=== PATIENT | female | born 1950 | race Caucasian/White ===

== ENCOUNTER → 2024-01-25 06:26 | Day surgery (SDC) | payer MEDICARE, SELFPAY ==
[2024-01-25 07:24] LABS: Glucose - Point of Care 91 mg/dl (70-99)
== END ==
LOC: GI 06:26
PROVIDERS: ATTENDING PHYSICIAN Internal Medicine Gastroenterology
DX: K64.8 Other hemorrhoids (principal); K57.30 Diverticulosis of large intestine without perforation or abscess without bleeding; R19.4 Change in bowel habit; D12.4 Benign neoplasm of descending colon; Z86.010 Personal history of colon polyps
CPT/HCPCS: 45385; 45380; 88305; 82962

== ENCOUNTER → 2024-06-06 12:18 | Outpatient (REF) | payer MEDICARE, SELFPAY | LOC: HWWDC 12:18 | PROVIDERS: ATTENDING PHYSICIAN Obstetrics & Gynecology; FAMILY PHYSICIAN Internal Medicine | DX: Z12.31 Encounter for screening mammogram for malignant neoplasm of breast (principal) | CPT/HCPCS: 77063; 77067 ==

== ENCOUNTER → 2024-07-17 11:50 | Outpatient (REF) | payer MEDICARE, SELFPAY | LOC: RAD 11:50 | PROVIDERS: ATTENDING PHYSICIAN Nurse Practitioner; FAMILY PHYSICIAN Internal Medicine | DX: K59.09 Other constipation (principal) | CPT/HCPCS: 74018 ==

== ENCOUNTER 2025-04-25 09:13 | Inpatient (IN) | payer MEDICARE, SELFPAY ==
[2025-04-22 20:20] VITALS: BP 156/97
[2025-04-22 20:25] VITALS: BP 156/97
[2025-04-22 20:31] VITALS: BMI 30.6
[2025-04-22 20:49] LABS: % Basophils 0.4 % (0-2); % Eosinophils 1.9 % (0-6); % Immature Granulocytes 0.3 % (0-0.5); % Lymphocytes 31.9 % (20.5-51.1); % Monocytes 10.1 % (1.7-9.3); % Neutrophils 55.4 % (42.2-75.2); Absolute Eosinophils 0.1 10^3/uL (0-0.7); Absolute Lymphocytes 2.4 10^3/uL (1.2-3.4); Absolute Monocytes 0.8 10^3/uL (0.1-0.6); Absolute Neutrophils 4.2 10^3/uL (1.4-6.5); Hematocrit 36.5 % (37.0-47.0); Hemoglobin 12.1 g/dL (12.0-16.0); Mean Corp Hgb Conc. 33.2 g/dL (33.0-37.0); Mean Corpuscular Hgb 25.1 pg (27.0-31.0); Mean Corpuscular Volume 75.7 fL (81.0-99.0); Mean Platelet Volume 10.6 fL (7.4-10.4); Nucleated Red Blood Cells % 0 %; Platelet Count 303 10^3/uL (130-400); Red Blood Cell Count 4.82 10^6/uL (4.20-5.40); Red Cell Dist. Width 15.8 % (11.5-14.5); White Blood Cell Count 7.5 10^3/uL (4.8-10.8)
[2025-04-22 21:00] VITALS: BP 142/86
[2025-04-22 21:15] LABS: ALT (SGPT) 22 U/L (0-35); AST (SGOT) 29 U/L (14-36); Albumin 4.4 g/dl (3.5-5.0); Alkaline Phosphatase 110 U/L (38-126); Blood Urea Nitrogen 15 mg/dl (7-17); Calcium 9.3 mg/dl (8.4-10.2); Carbon Dioxide 21 mmol/L (22-30); Chloride 104 mmol/L (98-107); Estimated Creatinine Clearance 78 ml/min; Glucose 92 mg/dl (70-99); Potassium 4.4 mmol/L (3.5-5.1); Sodium 135 mmol/L (135-145); Total Bilirubin 0.8 mg/dl (0.2-1.3); Total Protein 6.6 g/dl (6.3-8.2); eGFR > 60.00
[2025-04-22 22:00] VITALS: BP 138/85
[2025-04-22 23:00] VITALS: BP 137/88
[2025-04-23] VITALS (10 sets, daily range): BP systolic 118–147; BP diastolic 60–92; BMI 30.6; BMI 29.2
[2025-04-23 00:07] LABS: NT-proBNP 4440 pg/ml; Troponin I < 0.012 ng/ml
--- NOTE | 2025-04-23 00:13 | ED.GENMED ---
History of Present Illness
General
Chief Complaint: Weakness
Source: patient and family
Exam Limitations: none
Time Seen by Provider: 04/22/25 23:32
Nursing documentation reviewed up to this point in time: agreed with
History of Present Illness
History of Present Illness:
75-year-old female presents to the emergency weakness and shortness of breath. She has a diagnosis of HOCM and is followed by [facility] cardiology. Patient had a dual-chamber pacemaker placed last week. This was done at [facility]. This morning patient was
notified that she was in paroxysmal atrial fibrillation. She was started on digoxin and restarted on Eliquis. Daughter states that she has been acting lethargic for the last week. Today she developed chest pain. Patient has been also followed
for a pericardial effusion. Cardiology told them that she will need a new echocardiogram.
Past History
Past History
ED Past Medical History: GERD, HTN, Hypercholesterolemia, Seizures, Other (Asthmatic bronchitis, Diverticulitis, Renal calculus, Pre diabetic on Metformin due to Neuropathy, pelvic floor dysfunction) and Other (Multinodular goiter, bladder prolapse)
ED Past Surgical History: Gynecological (Total hysterectomy, Pelvic floor reconstruction), Orthopedic (Right and left total knee replacements) and Other (Parathyroidectomy, Cataracts)
Social History
Tobacco: Non-smoker
Alcohol: Occasional
Personal: (but lives with X-)
Living: with family
Family History
Family History: Other (Reviewed and noncontributory)
Review of Systems
Review of Systems
All Other Systems: ROS reviewed and negative except as documented in HPI and ROS
Constitutional: Reports fatigue and sleep disturbance
Respiratory: Reports trouble breathing
Cardiac: Reports chest pain and palpitations
Psychiatric: Reports depression and anxiety
Phy Exam
General Physical Exam
General Presentation: well appearing and mild distress
General age: appears older than age
General Skin: warm and dry
General Habitus: normal and debilitated
General Mental: alert
General Hydration: appears well hydrated
ENT Exam
ENT Exam: EOMI, pharynx normal, neck supple and normocephalic
Eye Exam
Eye Exam: PERRL, cornea clear and conjunctiva normal
Cardiovascular Exam
Cardiovascular Exam: no edema, no murmur, normal peripheral pulses and irregularly irregular
Pulmonary Exam
Pulmonary Exam: lungs clear, no respiratory distress, no rales, no crackles, no rhonchi, no stridor, no wheezing and no cough
Gastrointestinal Exam
Gastrointestinal Exam: normal bowel sounds, non tender, soft, no organomegaly, no pulsatile mass and non distended
Neurological Exam
Neurological Exam: alert, oriented x3, no motor deficits and speech normal
Musculoskeletal Exam
Musculoskeletal Exam: full ROM and no edema
Skin Exam
Skin Exam: normal color, warm/dry, no rash and no petechia
Psychiatric Exam
Psychiatric Exam: normal mood/affect
Course
Orders/Labs/Results
Orders:
Orders
04/22/25 20:25
Electrocardiogram (*1) Urgent
Reason for Study: Chest Pain
EKG- Treatment ONCE
04/22/25 20:36
Complete Blood Count/With Diff Urgent
Comprehensive Metabolic Panel Urgent
04/22/25 23:33
Pro-BNP [NT-proBNP] Urgent
Troponin I Urgent
04/23/25 00:17
CR Chest - 2 Views Urgent
Comment:
Reason For Exam: dyspnea
Abnormal Lab Results
04/22/25
20:36
Hct 36.5 L %
(37.0-47.0)
MCV 75.7 L fL
(81.0-99.0)
MCH 25.1 L pg
(27.0-31.0)
RDW 15.8 H %
(11.5-14.5)
MPV 10.6 H fL
(7.4-10.4)
Absolute Monos (auto) 0.8 H 10^3/uL
(0.1-0.6)
Monocytes % 10.1 H %
(1.7-9.3)
Carbon Dioxide 21 L mmol/L
(22-30)
04/22/25 20:36
04/22/25 20:36
Vital Signs
Initial and Last Documented VS:
Initial Vital Signs
Temp Pulse Resp BP Pulse Ox
98.0 F 97 15 156/97 99
04/22/25 20:20 04/22/25 20:20 04/22/25 20:20 04/22/25 20:20 04/22/25 20:20
Last Documented Vital Signs
Temp Pulse Resp BP Pulse Ox
98.0 F 75 24 137/88 98
04/22/25 20:20 04/22/25 23:15 04/22/25 23:15 04/22/25 23:00 04/22/25 23:15
*EKG
Heart Rate: 93
Rhythm: a-fib
Interval: normal interval
QRS Pattern: normal QRS
Ischemia: no ischemia
*Tool Lapper Hand Interpretation
Rate: normal
Interpretation: abnormal
Heart Rate: 88
Rhythm: a-fib
*Critical Care Note
Total Time (30-74mins, 75-104mins- exclusive of procedures): Not Applicable
ED Attending Note
-
Portions of this chart may have been created with voice recognition software.� Occasional wrong word or��sound alike� substitutions may have occurred due to the inherent limitations of voice recognition software.
Discharge Plan
Departure
Patient Disposition: Admit
Date of Disposition: 04/23/25
Time of Disposition: 00:29
Admit to: Telemetry
Presentation/result/management discussed w/ accepting MD/DO: Hospitalist
Condition: Good
Discharge Problem:
HOCM (hypertrophic obstructive cardiomyopathy), Weakness, Chest pain, A-fib
Prescriptions:
No Action
metformin 500 MG tablet
500 mg PO DAILY
cyanocobalamin (vitamin B-12) [Vitamin B-12] 1,000 mcg Tablet
1,000 mcg PO MOWEFR Qty: 0
duloxetine 60 MG capsule,delayed release(DR/EC)
60 mg PO QPM
pregabalin [Lyrica] 150 mg Capsule
150 mg PO BID Qty: 0
cholecalciferol (vitamin D3) [Vitamin D3] 50 mcg (2,000 unit) Capsule
50 mcg PO DAILY Qty: 0
rosuvastatin [Crestor] 5 mg Tablet
5 mg PO MOWEFR
amiodarone 200 mg Tablet
200 mg PO DAILY
metoprolol succinate 100 mg Tablet Extended Release 24 Hr
100 mg PO DAILY
tamsulosin [Flomax] 0.4 mg Capsule
0.4 mg PO DAILY
methimazole 5 mg Tablet
5 mg PO DAILY
esomeprazole magnesium [Nexium] 20 mg Capsule,Delayed Release(Dr/Ec)
20 mg PO BID
Eliquis 5 mg Tablet
5 mg PO BID
levetiracetam 500 mg Tablet
1,000 mg PO BID Qty: 120 0RF
cephalexin 500 mg capsule
500 mg PO Q6H 7 Days Qty: 28 0RF
Referrals:
Komal Arias DO [Family Provider, Internal Medicine]
Interventions
Interventions:
*Risk Screen - Suicide Last Done: 04/22/25 20:20
*General Assessment Last Done: 04/22/25 20:20
*Neglect/Abuse Screening Last Done: 04/22/25 20:20
*ED- Fall Risk Assessment Last Done: 04/22/25 20:20
*ED COVID-19 Vaccine History Last Done: 04/22/25 20:20
ED- Cardiac Assessment Last Done: 04/22/25 20:31
ED- Neurological Assessment Last Done: 04/22/25 20:31
ED- Pulmonary Assessment Last Done: 04/22/25 20:31
Discharge Date and Time
Print Language: URDU
--- NOTE | 2025-04-23 03:16 | HPS.HSE ---
Family Physician
-
Family Physician: Komal rAias
Chief Complaint
-
Weakness / Fatigue
History of Present Illness
Patient is a 75y F with PMH significant for paroxysmal A-Fib, ASCVD and HOCM who presents to ED complaining of weakness and fatigue. Patient notes that she underwent placement of BiV AICD on 04/16 at [facility]. She states that she was feeling
fairly well prior to that; however, since the surgery she has felt progressively more weak and fatigued. She complains of general malaise, poor appetite, dyspnea with activity and occasional chest heaviness. She was contacted this AM and advised
that her AICD showed she had been in A-Fib since 04/17 - 100% of the time. Patient notes that she typically does not tolerate being in A-Fib very well.
Patient was instructed to begin Digoxin (she has taken one dose thus far) and to resume her Eliquis (originally scheduled to be held until mid-April). She took first doses of these meds; however, she continued to feel poorly and presented to the ED
for further evaluation.
She denies any cough, fevers / chills, N/V/D, etc.
Medical History
Past Medical History
Past Medical History: Reports Other
Additional Past Medical History:
Paroxysmal Atrial Fibrillation
HOCM
Pericardial Effusion
Hypertension
Seizure Disorder (last seizure 2022)
DM-II
Past Surgical History: Reports Other
Additional Past Surgical History:
AICD Placement 04/16/25
Pelvic Reconstruction / Hysterectomy
Bilateral TKA
RLE ORIF
Right Shoulder ORIF
Parathyroidectomy
Cataracts
Social History
Tobacco: Non-smoker
Alcohol: None
Drug: None
Family History
Family History: Other (Father: CVA Mother: CAD)
Allergies / Home Medications
Allergies reflects when Allergies were last updated in [facility].
Home Medications with original date entered in [facility]
Allergy/Medication List:
Allergies
Allergy/AdvReac Type Severity Reaction Status Date / Time
No Known Allergies Allergy Verified 04/22/25 20:20
Home Medications
duloxetine 60 mg capsule,delayed release 60 mg PO QPM Mental Health/Anxiety 07/21/20
metformin 500 mg tablet 500 mg PO DAILY Diabetes 07/21/20
rosuvastatin 5 mg tablet (Crestor) 5 mg PO MOWEFR High cholesterol 10/19/22
apixaban 5 mg tablet (Eliquis) 5 mg PO BID Blood clot prevention/tx 01/21/23
atenolol 50 mg tablet 50 mg PO BID 04/23/25
colchicine 0.6 mg tablet 0.6 mg PO BID 04/23/25
fexofenadine 60 mg tablet 60 mg PO DAILY PRN allergies 04/23/25
fluticasone propionate 50 mcg/actuation nasal spray,suspension (Flonase Allergy Relief) 2 spray intranasal DAILY 04/23/25
levetiracetam 500 mg tablet 750 mg PO QPM 04/23/25
mavacamten 2.5 mg capsule (Camzyos) 2.5 mg PO DAILY 04/23/25
pantoprazole 40 mg tablet,delayed release 40 mg PO DAILY 04/23/25
Review of Systems
-
History Source: Patient
A 12 point ROS was completed and negative except as noted: Yes
Constitutional: Reports Fatigue; Denies Fever or Chills
EENT: Denies Sore Throat
Respiratory: Reports Trouble Breathing; Denies Cough
Cardiac: Reports Chest Pain; Denies Diaphoresis, Palpitations or Syncope
Abdomen/GI: Denies Abdominal Pain, Nausea, Vomiting or Diarrhea
: Denies Dysuria or Frequency
Musculoskeletal: Denies Joint Pain or Edema
Neurological: Reports Weakness; Denies Dizzy or Headache
Psych: Denies Depression or Anxiety
Physical Exam
Vital Signs
Vital Signs
Temp Pulse Resp BP Pulse Ox
98.0 F 88 10 132/86 96
04/22/25 20:20 04/23/25 03:15 04/23/25 03:15 04/23/25 03:12 04/23/25 03:15
Physical Exam
General: Other (75y F in no acute distress.)
HEENT: Moist mucous membranes and PERRLA
Respiratory: Clear; No Wheezes, Rales or Rhonchi
Cardiac: S1/S2, Irregular Rhythm and Other (L ACW incision site intact without bleeding / discharge / erythema / etc.); No Murmur
GI: Soft, Non Tender, Non Distended and Normal Bowel Sounds
Musculoskeletal: No Clubbing, No Cyanosis and No Edema
Neuro: AO x 3
Laboratory Results
-
04/22/25 20:36
04/22/25 20:36
Laboratory Results
Total Bilirubin 0.8 mg/dl (0.2-1.3) 04/22/25 20:36
AST 29 U/L (14-36) 04/22/25 20:36
ALT 22 U/L (0-35) 04/22/25 20:36
Alkaline Phosphatase 110 U/L (38-126) 04/22/25 20:36
Troponin I < 0.012 ng/ml 04/22/25 23:33
Impression/Plan
-
A/P: Patient is a 75y F with PMH significant for PA-Fib, HOCM and recent AICD placement who presents to ED complaining of weakness, dyspnea and intermittent chest discomfort.
Chest Pain
Fatigue
Paroxysmal Atrial Fibrillation
HOCM
- Observe overnight for further evaluation and treatment.
- Symptoms likely secondary to A-Fib and patient reports prior history of very poor tolerance of arrhythmia.
- Device interrogation notes 100% A-Fib since 04/21.
- Continue atenolol. Continue newly added digoxin for now.
- Continue Eliquis for stroke risk reduction (first dose was earlier today).
- Cardiology evaluation for additional recommendations.
- Update Echo.
Pericardial Effusion
- Check Echo as noted above
- Continue colchicine for now - patient reports about 3-4 days remaining of this course.
Benign Hypertension
- Stable. Continue usual med regimen with holding parameters.
DM-II
- Stable. Hold metformin. Follow glucose and cover with SSI as needed.
Seizure Disorder
- Stable. Last seizure activity in 2022.
- Continue Keppra.
Anxiety / Depression
- Stable. Continue outpatient medication.
DVT Prophylaxis: On Eliquis
Code Status: Full
--- NOTE | 2025-04-23 05:00 | PTCARENOTE ---
Received patient from ED at approx 0445. Patient attempted to ambulate from bed to stretcher without assistive device (her baseline); however, she displayed an unsteady gait and was provided with a walker the rest of the way. AAA x3. Oriented to
room. Call cox in reach.
[2025-04-23 07:15] LABS: Glucose - Point of Care 98 mg/dl (70-99)
[2025-04-23 08:00] LABS: Hematocrit 34.8 % (37.0-47.0); Hemoglobin 11.4 g/dL (12.0-16.0); Mean Corp Hgb Conc. 32.8 g/dL (33.0-37.0); Mean Corpuscular Hgb 24.9 pg (27.0-31.0); Mean Platelet Volume 10.8 fL (7.4-10.4); Platelet Count 302 10^3/uL (130-400); Red Blood Cell Count 4.58 10^6/uL (4.20-5.40); Red Cell Dist. Width 15.9 % (11.5-14.5); White Blood Cell Count 6.2 10^3/uL (4.8-10.8)
[2025-04-23 08:14] LABS: Troponin I < 0.012 ng/ml
[2025-04-23] MEDS: NON-FORMULARY ITEM 2.5 MG PO (08:17)
[2025-04-23] MEDS: COLCHICINE 0.6 MG PO ×2 (08:19→21:17)
[2025-04-23] MEDS: TENORMIN 50 MG PO ×2 (08:19→21:17)
[2025-04-23] MEDS: PROTONIX 40 MG PO (08:19)
[2025-04-23] MEDS: ELIQUIS 5 MG PO ×2 (08:19→21:17)
[2025-04-23] MEDS: CRESTOR 5 MG PO (08:20)
[2025-04-23 08:45] LABS: Glycohemoglobin (HgbA1c) 5.6 % (4.0-5.6)
[2025-04-23 08:51] LABS: Blood Urea Nitrogen 11 mg/dl (7-17); Calcium 8.7 mg/dl (8.4-10.2); Carbon Dioxide 21 mmol/L (22-30); Chloride 102 mmol/L (98-107); Estimated Creatinine Clearance 89 ml/min; Glucose 98 mg/dl (70-99); Magnesium 1.7 mg/dl (1.6-2.3); Potassium 4.2 mmol/L (3.5-5.1); Sodium 131 mmol/L (135-145); eGFR > 60.00
[2025-04-23 08:56] LABS: TSH Reflex To Free T4 0.62 uIU/ml (0.47-4.68)
[2025-04-23 11:50] LABS: Glucose - Point of Care 115 mg/dl (70-99)
--- NOTE | 2025-04-23 12:55 | CON.CAR ---
Addendum entered and electronically signed by Markie Soliz MD 04/23/25 15:31:
I saw and examined the patient.
The Manager Channel's note was reviewed and I agree with the note.
Comment: Briefly, 75-year-old woman past medical history of hypertrophic cardiomyopathy, paroxysmal atrial fibrillation and recent ICD implant on 04/16/2025
Patient was contacted by her primary lepidopterist due to persistent A-fib seen on remote transmission from her newly implanted defibrillator
Outpatient Eliquis was resumed after being held postprocedure and patient was started on digoxin for additional rate control
There was concern for pericardial effusion following ICD implant therefore we will arrange for transthoracic echocardiogram to re-evaluate
If no significant effusion is seen by transthoracic echo we can arrange for JANET/direct-current cardioversion to restore sinus rhythm as she is symptomatic in A-fib despite rate control - tells me that she has felt extremely fatigued over this past
week
Would tentatively start antiarrhythmic drug following cardioversion to maintain sinus rhythm as a bridge to potential ablation with her primary lepidopterist
Rest per Keya Gao
Original Note:
Consultation
Consultation Request
Date/Time Consultation Performed: 04/23/25
Requesting Provider: Dr. Rae Caicedo
Performing Provider: Keya Gao PA-C for Dr. Soliz
Reason for Consultation: afib, chest discomfort
Medical History
-
Chief Complaint: afib, chest discomfort
History of Present Illness:
Patient is a 75 yo F with PMH of HOCM on camzyos, paroxysmal atrial fibrillation on eliquis, who underwent ICD implant 04/16/25 at [facility] by Dr. Stefano Alas. She reports post op was told she had some degree of pericardial effusion however
nothing that required intervention. She has not yet had follow up for wound check. She reports she was then called yesterday by her lepidopterist and told that she has been in persistent afib since 04/17 and was started on digoxin and her eliquis was
restarted (had been held post procedure, plan was until mid April). She states she can normally tell when she is in afib however was unable to tell this time. She states she normally does not tolerate being in afib well. She reports fatigue and
diffuse L sided chest heaviness. Cardiology consulted for evaluation.
PMH:
HOCM on camzyos
s/p Medtronic ICD placement 04/16/25 at [facility]
Pericardial effusion
PAF, eliquis restarted 04/22/25 post ICD
HTN
HLD
Diabetes
Peripheraly neuropathy
History of seizures
Multinodular goiter
History of B/L TKA
Past Medical History
Past Medical History: Other (in HPI)
Social History
Tobacco: Non-Smoker
Alcohol: None
Drug: None
Personal:
Employment: Retired
Family History
Family History: CAD and Other (CVA)
Allergies / Home Medications
Allergy/AdvReac Type Severity Reaction Status Date / Time
No Known Allergies Allergy Verified 04/22/25 20:20
�Medication �Instructions �Recorded �Confirmed �Type
duloxetine 60 mg capsule,delayed 60 mg PO QPM Mental Health/Anxiety 07/21/20 04/23/25 History
release
metformin 500 mg tablet 500 mg PO DAILY Diabetes 07/21/20 04/23/25 History
rosuvastatin 5 mg tablet (Crestor) 5 mg PO MOWEFR High cholesterol 10/19/22 04/23/25 History
apixaban 5 mg tablet (Eliquis) 5 mg PO BID Blood clot 01/21/23 04/23/25 History
prevention/tx
Lyrica 200 mg BID 04/23/25 04/23/25 History
atenolol 50 mg tablet 50 mg PO BID 04/23/25 04/23/25 History
colchicine 0.6 mg tablet 0.6 mg PO BID 04/23/25 04/23/25 History
fexofenadine 60 mg tablet 60 mg PO DAILY PRN allergies 04/23/25 04/23/25 History
fluticasone propionate 50 2 spray intranasal DAILY 04/23/25 04/23/25 History
mcg/actuation nasal
spray,suspension (Flonase Allergy
Relief)
levetiracetam 500 mg tablet 750 mg PO QPM 04/23/25 04/23/25 History
mavacamten 2.5 mg capsule (Camzyos) 2.5 mg PO DAILY 04/23/25 04/23/25 History
pantoprazole 40 mg tablet,delayed 40 mg PO DAILY 04/23/25 04/23/25 History
release
Review of Systems
-
History Source: Patient
All other systems: Negative unless noted
Physical Exam
Vital Signs
Temp Pulse Resp BP Pulse Ox
98.0 F 84 18 128/82 96
04/23/25 11:45 04/23/25 11:45 04/23/25 11:45 04/23/25 11:45 04/23/25 11:45
Lab Results
04/23/25 07:31
04/23/25 07:31
Troponin I Cancelled 04/23/25 16:44
Ffp-H-Mqxownydvzl Pept 4440 pg/ml 04/22/25 23:33
Physical Exam
General: No Apparent Distress and Other (reports chest heaviness)
HEENT: Normocephalic, Anicteric and Moist Mucous Membranes
Respiratory: Clear and Non Labored Respirations
Cardiac: S1/S2 and Irregular Rhythm
GI: Soft, Non Tender, Non Distended and Normal Bowel Sounds
Musculoskeletal: No Clubbing, No Cyanosis and No Edema
Skin: Warm and Dry
Neuro: AO x 3
Psych: Other (flat affect)
Impression / Plan
-
Primary Greaser And Oiler: Dr. Isabel Narayanan of [facility]
Primary EP: Dr. Stefano Alas, [place]
Primary CHF/HOCM: Delfin Lopez
Assessment:
Presentation with fatigue, chest heaviness
Negative troponin x2
HOCM on camzyos
s/p Medtronic ICD placement 04/16/25 at [facility]
Pericardial effusion noted post op
PAF, eliquis restarted 04/22/25 post ICD
HTN
HLD
Diabetes
Peripheral neuropathy
History of seizures
Multinodular goiter
History of B/L TKA
ECHO 04/23/25: pending
Plan:
- Patient presents with complaints of fatigue and chest heaviness in the setting of recent Medtronic ICD placement 04/16/2025 at [facility]
- she was called by primary lepidopterist yesterday as was noted to be in persistent A-fib since 04/17. She has history of paroxysmal atrial fibrillation, but has never been on antiarrhythmic drug therapy or had ablation before. She reports her
lepidopterist wanted to implant ICD first before deciding on further A-fib treatments.
- She was reportedly noted to have pericardial effusion postoperatively and her Eliquis was planned to be on hold until mid April, however as she went into A-fib, Eliquis was resumed 04/22/2025 and she was started on digoxin
- She remains in rate controlled atrial fibrillation on review of telemetry with occasional V pacing
- Device interrogated today and device well-functioning without noted abnormalities
- L chest ICD site appears c/d/i, without surrounding erythema, edema. no drainage
- Check echo to reevaluate pericardial effusion
- Appears she is already being treated for pericarditis with colchicine 0.6 mg twice daily
- She complains of chest heaviness. Troponins negative x 2. May be related to postoperative status. Continue pain management with Tylenol
- proBNP was also elevated at 4440. Chest x-ray however was without pleural effusions or evidence for acute pulmonary edema. Could consider dose of IV Lasix x 1 as blood pressure stable
- Have attempted to reach out to Dr. Stefano Alas [place] EP, to discuss patient's case particularly regarding initiation of antiarrhythmic drug therapy and obtain records. Could also consider for JANET/cardioversion prior to discharge. Hemoglobin 11.4
Data Reviewed
-
EKG: Tracing Personally Visualized and interpreted
Radiology: Report Reviewed by me
Labs: Labs Reviewed by me
Old Records: Reviewed
[2025-04-23] MEDS: LANOXIN 125 MCG PO (13:00)
[2025-04-23] MEDS: LANOXIN PO (13:15)
[2025-04-23] MEDS: TYLENOL 650 MG PO (13:26)
--- NOTE | 2025-04-23 13:54 | W.CARD.DEVCH ---
Cardiac Device Check
-
Device: Implanted Cardioverter-Defibrillator
Rotary Rig Engine Operator: Medtronic
The patient's device was interrogated with assistance of the device financial foundations representative. The device had normal function. Noted to be in persistent atrial fibrillation. 11% vpaced.
--- NOTE | 2025-04-23 15:39 | CM ---
CM reviewed chart, patient seen bedside, initial assessment completed. Patient resides with her ex- in a one story home with upstairs loft, patient remains on first level of home, half a step to enter home through garage. Patient denies use
of DME, reports outpatient PT in the past, [facility] in past, reports having a horrible experience. Patient confirms PCP Komal Arias, pharmacy [facility] [place], confirms prescription coverage. HARRISON form reviewed, provided with copy,
placed in chart. CM will continue to follow for all discharge planning needs.
Plan; home no needs likely.
[2025-04-23 16:08] LABS: Digoxin < 0.4 ng/ml (0.8-2.0)
[2025-04-23 16:41] LABS: Glucose - Point of Care 137 mg/dl (70-99)
[2025-04-23] MEDS: KEPPRA 750 MG PO (17:25)
[2025-04-23] MEDS: CYMBALTA DELAYED RELEASE 60 MG PO (17:25)
[2025-04-23 21:26] LABS: Glucose - Point of Care 135 mg/dl (70-99)
[2025-04-23] MEDS: LYRICA 200 MG PO (22:01)
[2025-04-24 03:13] VITALS: BP 125/78
[2025-04-24 05:40] LABS: Glucose - Point of Care 92 mg/dl (70-99)
[2025-04-24 06:00] VITALS: BMI 29.4
[2025-04-24 07:50] VITALS: BP 111/63
[2025-04-24] MEDS: NON-FORMULARY ITEM 2.5 MG PO (08:13)
[2025-04-24] MEDS: LYRICA 200 MG PO ×2 (08:14→20:15)
[2025-04-24] MEDS: TENORMIN 50 MG PO ×2 (08:15→20:17)
[2025-04-24] MEDS: ELIQUIS 5 MG PO ×2 (08:15→20:17)
[2025-04-24] MEDS: PROTONIX 40 MG PO (08:15)
[2025-04-24] MEDS: COLCHICINE 0.6 MG PO ×2 (08:15→20:17)
--- NOTE | 2025-04-24 11:52 | ITS.CL.CARDI ---
District Sales Manager - Cardioversion
Cardioversion
Procedure Report:
Procedure: JANET-guided electrical cardioversion
Pre-operative diagnosis: Persistent atrial fibrillation
Post-operative diagnosis: Persistent atrial fibrillation status post DC cardioversion to sinus rhythm
Anesthesia: MAC
Attending Physician: Markie Soliz MD
Procedure Description: The patient was brought to the electrophysiology laboratory in the fasting state. Informed consent was obtained from the patient prior to the start of the procedure. Adherence to anticoagulation was confirmed. Electrodes were
placed on the patient and connected to an external defibrillator. Monitoring of blood pressure, ECG tracings, and pulse oximetry was initiated. The pads were applied to the patient in the anterior and posterior positions. The patient was sedated by
the anesthesiologist. A JANET (reported separately) was performed prior to the cardioversion. No left atrial or left atrial appendage thrombus was seen. After the JANET probe was removed, a 200 joule biphasic synchronized shock was delivered to the
patient under MAC anesthesia. Sinus rhythm was successfully restored. The patient recovered uneventfully from MAC anesthesia. There were no immediate post-procedure complications. The patient left the lab in good condition. The attending physician
was present throughout the entire procedure.
Impression: Successful JANET-guided direct current cardioversion with cheondoism of sinus rhythm after one 200 joule biphasic synchronized shock.
--- NOTE | 2025-04-24 12:30 | PTCARENOTE ---
12:30 Pt returned from cook house laborer via stretcher.Alert and oriented x 3.Vs stable. Noted on heart monitor continue Normal Sinus Rhythm (heart rate 60's)
Pt denies discomfort. Explain to pt current lunch diet ordered, continue to monitor pt closely.
[2025-04-24 12:36] VITALS: BP 131/73
[2025-04-24 12:56] LABS: Glucose - Point of Care 107 mg/dl (70-99)
[2025-04-24] MEDS: PACERONE 400 MG PO ×2 (13:25→20:17)
--- NOTE | 2025-04-24 13:43 | W.PN.HOSP.TC ---
Today's Communication/Plan
-
Assessment / Plan
Assessment / Plan
NAD
Scleral Anicteric
MMM
No JVD
CTABL
IRR, S1/S2
Soft, NT, ND, BS+
Warm, Dry
AAOx3
Calm
Afib RVR with HOCM
plan for luis carlos dccv with cardiology today
conitgnue bb and amio
outpt [place] [facility] follow up for discussion of ablation
monitor on tele
pericardial effusion
continue ecolchcine
htn
continnue antihypertenisve
dmII
ssi, hold megformin, bg 140-180, ccdiet
sz disorder
continue keppra
anxiety/depression
continue anxiolytics/antidepressives
Anticipated Discharge: 24 - 48 hours
Subjective/Interval History
-
Date of Service: April 24, 2025
seen and examined. no new complai ts. noact overnight evetns
Objective Data
-
Vital Signs:
Vital Signs
Temp Pulse Resp BP Pulse Ox
97.5 F 65 18 131/73 96
04/24/25 12:36 04/24/25 12:36 04/24/25 12:36 04/24/25 12:36 04/24/25 12:36
I&O
04/23/25 04/24/25 04/25/25
06:59 06:59 06:59
Intake Total 240 / 240 1360 / 1360
Balance 240 / 240 1360 / 1360
--- NOTE | 2025-04-24 13:49 | CM ---
Chart reviewed and plan is to home when stable.
Plan; Home when stable.
[2025-04-24 14:41] VITALS: BP 137/80
[2025-04-24 16:19] LABS: Glucose - Point of Care 148 mg/dl (70-99)
--- NOTE | 2025-04-24 16:42 | W.PN.CARDCBS ---
Today's Communication / Plan
-
Back in sinus rhythm following cardioversion
We will sign off, please recall as needed
Outpatient cardiac meds at time of discharge:
Eliquis 5 mg twice daily
Atenolol 50 mg twice daily
Colchicine 0.6 mg twice daily
Mavacamten 2.5 mg daily
Rosuvastatin 5 mg MWF
Amiodarone 400 mg twice daily x 1 week then 200 mg daily
Impression / Plan
-
Primary Field Sales Agent: Dr. Isabel Narayanan of [facility]
Primary EP: Dr. Stefano Alas, [place]
Primary CHF/HOCM: Dr. Hdz Scott
Assessment:
Presentation with fatigue, chest heaviness
Negative troponin x2
HOCM on camzyos
s/p Medtronic ICD placement 04/16/25 at [facility]
Pericardial effusion noted post op
PAF, eliquis restarted 04/22/25 post ICD
HTN
HLD
Diabetes
Peripheral neuropathy
History of seizures
Multinodular goiter
History of B/L TKA
- Patient presents with complaints of fatigue and chest heaviness in the setting of recent Medtronic ICD placement 04/16/2025 at [facility]
- Called by primary building construction teacher as was noted to be in persistent A-fib since 04/17. She has history of paroxysmal atrial fibrillation, but has never been on antiarrhythmic drug therapy or had ablation before. She reports her building construction teacher wanted to
implant ICD first before deciding on further A-fib treatments.
- Reportedly noted to have pericardial effusion postoperatively and her Eliquis was planned to be on hold until mid April, however as she went into A-fib, Eliquis was resumed 04/22/2025 and she was started on digoxin.
Plan:
-Underwent successful JANET/DCCV 04/24/25
-Start amiodarone 400mg BID for 1 week and decrease to 200mg once daily to maintain sinus rhythm
-Stop digoxin
-Continue home atenolol
-Continue Eliquis
-Will follow up with Delfin BAGLEY re: ablation
- Small pericardial effusion on transthoracic echo here 04/23/25
- Continue colchicine which was started prior to admission
- Eventual repeat echo as an outpatient
- Previously reporting chest heaviness. Troponins negative x 2. Unclear if this is related to AFib or to ICD implant. Defer ischemic eval to outpatient building construction teacher.
- proBNP was also elevated at 4440, but does not appear volume overloaded on exam. Not chronically on a diuretic.
We will sign off, please recall as needed
Outpatient cardiac meds at time of discharge:
Eliquis 5 mg twice daily
Atenolol 50 mg twice daily
Colchicine 0.6 mg twice daily
Mavacamten 2.5 mg daily
Rosuvastatin 5 mg MWF
Amiodarone 400 mg twice daily x 1 week then 200 mg daily
Progress Note - Field Sales Agent
Subjective
Date of Service: April 24, 2025
No acute overnight events. Underwent JANET/direct-current cardioversion earlier today and is back in sinus rhythm.
Objective
Labs:
04/23/25 07:31
04/23/25 07:31
Labs
Hgb 11.4 g/dL (12.0-16.0) L 04/23/25 07:31
Hct 34.8 % (37.0-47.0) L 04/23/25 07:31
Plt Count 302 10^3/uL (130-400) 04/23/25 07:31
Sodium 131 mmol/L (135-145) L 04/23/25 07:31
Potassium 4.2 mmol/L (3.5-5.1) 04/23/25 07:31
BUN 11 mg/dl (7-17) 04/23/25 07:31
Creatinine 0.6 mg/dL (0.6-1.0) 04/23/25 07:31
Glucose 98 mg/dl (70-99) 04/23/25 07:31
Digoxin Cancelled 04/23/25 13:16
Troponins
04/22/25 04/23/25 04/23/25
23:33 07:31 13:30
Troponin I < 0.012 < 0.012 Cancelled
04/23/25
16:44
Troponin I Cancelled
Vital Signs and I&O:
Vital Signs
Temp Pulse Resp BP Pulse Ox
97.9 F 66 18 137/80 98
04/24/25 14:41 04/24/25 14:41 04/24/25 14:41 04/24/25 14:41 04/24/25 14:41
Vital Signs
Temp Pulse Resp BP Pulse Ox
97.9 F 66 18 137/80 98
04/24/25 14:41 04/24/25 14:41 04/24/25 14:41 04/24/25 14:41 04/24/25 14:41
Intake & Output
04/22/25 04/23/25 04/24/25 04/25/25
06:59 06:59 06:59 06:59
Intake Total 240 / 240 1360 / 1360
Balance 240 / 240 1360 / 1360
Physical Exam
Physical Exam
Gen: NAD, AAOx3
HEENT: NC/AT, sclera anicteric
Neck: No JVD
CV: Irregularly irregular, NL s1/s2
Lungs: CTAB
Abd: S/ND
Ext: No LE edema
Skin: Warm, dry, ICD pocket CDI
Neuro: Non-focal
[2025-04-24] MEDS: CYMBALTA DELAYED RELEASE 60 MG PO (17:57)
[2025-04-24] MEDS: KEPPRA 750 MG PO (17:57)
[2025-04-24 19:25] VITALS: BP 130/61
[2025-04-24 21:38] LABS: Glucose - Point of Care 101 mg/dl (70-99)
[2025-04-24 23:09] VITALS: BP 128/73
[2025-04-25 03:35] VITALS: BP 115/60
[2025-04-25 05:32] VITALS: BMI 29.6
[2025-04-25 07:13] VITALS: BP 109/61
[2025-04-25 07:44] LABS: Glucose - Point of Care 112 mg/dl (70-99)
[2025-04-25] MEDS: COLCHICINE 0.6 MG PO (08:30)
[2025-04-25] MEDS: TENORMIN 50 MG PO (08:30)
[2025-04-25] MEDS: PACERONE 400 MG PO (08:30)
[2025-04-25] MEDS: CRESTOR 5 MG PO (08:30)
[2025-04-25] MEDS: LYRICA 200 MG PO (08:30)
[2025-04-25] MEDS: PROTONIX 40 MG PO (08:30)
[2025-04-25] MEDS: ELIQUIS 5 MG PO (08:30)
[2025-04-25] MEDS: NON-FORMULARY ITEM 2.5 MG PO (08:31)
--- NOTE | 2025-04-25 09:16 | CM ---
Chart reviewed and patient is for discharge to home today, no needs.
Plan; Home no needs.
--- NOTE | 2025-04-25 13:49 | W.DCSUMMARY ---
Discharge Summary
Discharge Data
Date of Admission: 04/25/25
Date of Discharge: 04/25/25
-
Pending Results: No
Hospital Course
75y F with PMH significant for paroxysmal A-Fib, ASCVD and HOCM
Presented with uncontrolled atrial fibrillation with symptoms of fatigue weakness. Was taken to the JANET lab for JANET/DCCV cardioversion with cardiology. Was able to achieve sinus rhythm. Will discharge home with outpatient follow-up with
cardiology at [place] for evaluation of eventual ablation
2d Echo
CONCLUSIONS
Normal left ventricular chamber size. Mild concentric left ventricular
hypertrophy. Normal left ventricular systolic function. Left ventricular
ejection fraction is 65-70%.
Moderately dilated left atrium.
Mild tricuspid regurgitation.
Small pericardial effusion without evidence of hemodynamic compromise.
No prior study available for comparison.
JANET
CONCLUSIONS
Left ventricle is small in size. Asymmetric septal hypertrophy. Normal left
ventricular systolic function. No regional wall motion abnormalities are seen.
The ejection fraction is estimated at 60-65%.
No thrombus detected in the left atrial appendage.
No significant valvular pathology.
Seen and examined on the day of discharge which was 04/25/2025. No new complaints. No acute overnight events.
Sitting in bedside chair comfortable. No further fatigue weakness. Kayleigh in sinus rhythm.
NAD
Scleral Anicteric
MMM
No JVD
CTABL
RRR, S1/S2
Soft, NT, ND, BS+
Warm, Dry
AAOx3
Calm
More than 30 minutes spent in discharge including
Final examination of the patient
Summarizing hospital stay
Instructions for continuing care to all relevant caregivers
Preparation of discharge records, prescriptions, and referral forms
Total time spent (in minutes):33min
Discharge Plan
-
Patient Disposition: Home (Routine Discharge)
Discharge Diagnosis/Procedures: symptoatic atrial fibrillation
Diet: As tolerated
Activity: With assistance
Activity Restrictions/Additional Instructions:
Presented with uncontrolled atrial fibrillation with symptoms of fatigue weakness. Was taken to the JANET lab for JAENT/DCCV cardioversion with cardiology. Was able to achieve sinus rhythm. Will discharge home with outpatient follow-up with
cardiology at [place] for evaluation of eventual ablation
2d Echo
CONCLUSIONS
Normal left ventricular chamber size. Mild concentric left ventricular
hypertrophy. Normal left ventricular systolic function. Left ventricular
ejection fraction is 65-70%.
Moderately dilated left atrium.
Mild tricuspid regurgitation.
Small pericardial effusion without evidence of hemodynamic compromise.
No prior study available for comparison.
JANET
CONCLUSIONS
Left ventricle is small in size. Asymmetric septal hypertrophy. Normal left
ventricular systolic function. No regional wall motion abnormalities are seen.
The ejection fraction is estimated at 60-65%.
No thrombus detected in the left atrial appendage.
No significant valvular pathology.
Referrals:
Jb Barrett MD [Active, Cardiology] - in two to three weeks
Komal Arias DO [Family Provider, Internal Medicine]
Prescriptions:
New
amiodarone 200 mg tablet
400 mg PO BID 7 Days Qty: 28 0RF
amiodarone 200 mg tablet
200 mg PO DAILY Qty: 30 0RF
Continued
metformin 500 MG tablet
500 mg PO DAILY
duloxetine 60 MG capsule,delayed release(DR/EC)
60 mg PO QPM
rosuvastatin [Crestor] 5 mg Tablet
5 mg PO MOWEFR
Eliquis 5 mg Tablet
5 mg PO BID
fexofenadine 60 mg Tablet
60 mg PO DAILY PRN (Reason: allergies)
pantoprazole 40 mg Tablet,Delayed Release (Dr/Ec)
40 mg PO DAILY
colchicine 0.6 mg Tablet
0.6 mg PO BID
fluticasone propionate [Flonase Allergy Relief] 50 mcg/actuation [place],Suspension
2 spray INTRANASAL DAILY
atenolol 50 mg Tablet
50 mg PO BID
Camzyos 2.5 mg Capsule
2.5 mg PO DAILY
levetiracetam 500 mg tablet
750 mg PO QPM
Lyrica
200 mg BID
Discharge Orders:
Discharge Patient (As Directed); Ordered 04/25/25
Ordered By: Cesar Caicedo
Discharge Date and Time
Discharge Date/Time: 04/25/25 10:57
Print Language: [place]
== END 2025-04-25 10:57 | disposition home or self-care (01) | DRG 309 ==
LOC: 4 WEST ACU 09:13
PROVIDERS: Student in an Organized Health Care Education/Training Program; ADMITTING PHYSICIAN Hospitalist; ATTENDING PHYSICIAN Hospitalist; EMERGENCY PHYSICIAN Student in an Organized Health Care Education/Training Program; FAMILY PHYSICIAN Internal Medicine; OTHER PHYSICIAN Internal Medicine Cardiovascular Disease
PROC: 4B02XTZ Measurement of Cardiac Defibrillator, External Approach (ICD-10-PCS; 2025-04-23)
PROC: B24BZZ4 Ultrasonography of Heart with Aorta, Transesophageal (ICD-10-PCS; 2025-04-24)
PROC: 5A2204Z Restoration of Cardiac Rhythm, Single (ICD-10-PCS; 2025-04-24)
DX: I48.19 Other persistent atrial fibrillation (principal); I31.39 Other pericardial effusion (noninflammatory); I11.9 Hypertensive heart disease without heart failure; Z79.84 Long term (current) use of oral hypoglycemic drugs; Z79.01 Long term (current) use of anticoagulants; I25.10 Atherosclerotic heart disease of native coronary artery without angina pectoris; I42.1 Obstructive hypertrophic cardiomyopathy; G40.909 Epilepsy, unspecified, not intractable, without status epilepticus; E11.40 Type 2 diabetes mellitus with diabetic neuropathy, unspecified; Z95.810 Presence of automatic (implantable) cardiac defibrillator; Z96.653 Presence of artificial knee joint, bilateral; Z82.3 Family history of stroke; Z82.49 Family history of ischemic heart disease and other diseases of the circulatory system; F32.A Depression, unspecified; F41.9 Anxiety disorder, unspecified; E04.2 Nontoxic multinodular goiter; E78.00 Pure hypercholesterolemia, unspecified; J45.909 Unspecified asthma, uncomplicated; K21.9 Gastro-esophageal reflux disease without esophagitis; Z79.899 Other long term (current) drug therapy
CPT/HCPCS: 71046; 80048; 80053; 80162; 82962; 83036; 83735; 83880; 84443; 84484; 85025; 85027; 92960; 93005; 93306; 93312; 93320; 93325; 99285

== ENCOUNTER → 2025-06-17 12:54 | Outpatient (REF) | payer MEDICARE, SELFPAY | LOC: RAD 12:54 | PROVIDERS: FAMILY PHYSICIAN Internal Medicine | DX: E04.2 Nontoxic multinodular goiter (principal) | CPT/HCPCS: 76536 ==

== ENCOUNTER → 2025-07-14 09:47 | Outpatient (REF) | payer MEDICARE, SELFPAY | LOC: WDC 09:47 | PROVIDERS: ATTENDING PHYSICIAN Obstetrics & Gynecology; FAMILY PHYSICIAN Internal Medicine | DX: M85.89 Other specified disorders of bone density and structure, multiple sites (principal); N64.4 Mastodynia | CPT/HCPCS: 76642; 77062; 77066; 77080 ==

== ENCOUNTER 2025-07-16 14:13 | Outpatient (RCR) | payer MEDICARE, SELFPAY | END 2025-07-16 23:59 | disposition home or self-care (01) | LOC: RPT 14:13 | PROVIDERS: ATTENDING PHYSICIAN Psychiatry & Neurology Neurology; FAMILY PHYSICIAN Internal Medicine | DX: G62.9 Polyneuropathy, unspecified (principal); R26.89 Other abnormalities of gait and mobility; M79.604 Pain in right leg; Z73.6 Limitation of activities due to disability | CPT/HCPCS: 97110; 97112; 97116; 97162 ==

== ENCOUNTER → 2025-07-29 12:55 | Outpatient (REF) | payer MEDICARE, SELFPAY ==
[2025-07-29 16:24] LABS: Hematocrit 36.4 % (37.0-47.0); Hemoglobin 11.4 g/dL (12.0-16.0); Mean Corp Hgb Conc. 31.3 g/dL (33.0-37.0); Mean Corpuscular Volume 75.7 fL (81.0-99.0); Nucleated Red Blood Cells % 0 %; Platelet Count 307 10^3/uL (130-400); Red Cell Dist. Width 17.5 % (11.5-14.5)
[2025-07-29 16:25] LABS: INR 1.03; PT 13.8 Sec (11.4-14.6)
[2025-07-29 16:26] LABS: APTT 27.2 Sec (23.4-35.0)
[2025-07-29 16:43] LABS: ALT (SGPT) 26 U/L (0-35); AST (SGOT) 34 U/L (14-36); Albumin 4.4 g/dl (3.5-5.0); Alkaline Phosphatase 95 U/L (38-126); Blood Urea Nitrogen 13 mg/dl (7-17); Calcium 9.6 mg/dl (8.4-10.2); Carbon Dioxide 27 mmol/L (22-30); Chloride 99 mmol/L (98-107); Glucose 87 mg/dl (70-99); Potassium 4.6 mmol/L (3.5-5.1); Sodium 133 mmol/L (135-145); Total Protein 6.8 g/dl (6.3-8.2); eGFR > 60.00
== END ==
LOC: HWRAD 12:55
PROVIDERS: ATTENDING PHYSICIAN Internal Medicine Critical Care Medicine; FAMILY PHYSICIAN Internal Medicine; REFERRING PHYSICIAN Internal Medicine Cardiovascular Disease
DX: R91.8 Other nonspecific abnormal finding of lung field (principal); I48.19 Other persistent atrial fibrillation; I42.1 Obstructive hypertrophic cardiomyopathy; I31.39 Other pericardial effusion (noninflammatory); Z95.810 Presence of automatic (implantable) cardiac defibrillator
CPT/HCPCS: 36415; 71250; 80053; 85025; 85610; 85730

== ENCOUNTER 2025-07-30 09:05 | Outpatient (RCR) | payer MEDICARE, SELFPAY | END 2025-07-30 23:59 | disposition home or self-care (01) | LOC: RPT 09:05 | PROVIDERS: ATTENDING PHYSICIAN Psychiatry & Neurology Neurology; FAMILY PHYSICIAN Internal Medicine | DX: G62.9 Polyneuropathy, unspecified (principal); R26.89 Other abnormalities of gait and mobility; M79.604 Pain in right leg; Z73.6 Limitation of activities due to disability | CPT/HCPCS: 97110; 97112 ==

== ENCOUNTER 2025-09-16 08:26 | Outpatient (RCR) | payer MEDICARE, SELFPAY | END 2025-09-16 23:59 | disposition home or self-care (01) | LOC: RPT 08:26 | PROVIDERS: ATTENDING PHYSICIAN Psychiatry & Neurology Neurology; FAMILY PHYSICIAN Internal Medicine | DX: G62.9 Polyneuropathy, unspecified (principal); R26.89 Other abnormalities of gait and mobility; M79.604 Pain in right leg; Z73.6 Limitation of activities due to disability | CPT/HCPCS: 97110; 97112 ==

== ENCOUNTER 2025-10-13 10:23 | Outpatient (RCR) | payer MEDICARE, SELFPAY | END 2025-10-13 23:59 | disposition home or self-care (01) | LOC: RPT 10:23 | PROVIDERS: ATTENDING PHYSICIAN Psychiatry & Neurology Neurology; FAMILY PHYSICIAN Internal Medicine | DX: G62.9 Polyneuropathy, unspecified (principal); R26.89 Other abnormalities of gait and mobility; M79.604 Pain in right leg; Z73.6 Limitation of activities due to disability | CPT/HCPCS: 97110; 97112 ==

== ENCOUNTER 2025-10-28 12:20 | Outpatient (RCR) | payer MEDICARE, SELFPAY | END 2025-10-28 14:17 | disposition home or self-care (01) | LOC: RPT 12:20 | PROVIDERS: ATTENDING PHYSICIAN Psychiatry & Neurology Neurology; FAMILY PHYSICIAN Internal Medicine | DX: G62.9 Polyneuropathy, unspecified (principal); R26.89 Other abnormalities of gait and mobility; M79.604 Pain in right leg; Z73.6 Limitation of activities due to disability | CPT/HCPCS: 97110; 97112 ==